=== PATIENT | female | born 1990 | race Caucasian/White ===

== ENCOUNTER 2017-05-09 13:02 | Emergency (ER) | payer BC, OTHER ==
--- NOTE | 2017-05-09 13:54 | EDM.PDOC ---
ED HPI GENERAL MEDICAL PROBLEM - General Chief Complaint: Headache Stated Complaint: MIGRAINE Time Seen by Provider: 05/09/17 13:29 Source of Information: Reports: Patient History Limitations: Reports: No Limitations - History of Present Illness INITIAL COMMENTS - FREE TEXT/NARRATIVE: Patient is a 27-year-old female who presents today complaining of a tension- like headache that started approximately 2:00 this morning. States she has a history of migraines and at one time placed on Imitrex but was discontinued due to sensation she was going to pass out. She took Excedrin, ibuprofen, and peppermint oil with no relief. Headache is moderate to severe in nature following similar symptomology from previous headaches. This is not described as a worse headache of her life. She has been seen in the ED in the past and received Benadryl IM which relieved the headache. Otherwise she denies any recent head trauma, change in medications, alcohol/recreational drug use, or any additional precipitating factors. She is mildly nauseated with known emesis. She denies any dizziness, no sitting, weakness, fever/chills, and/or stiff neck. 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 - Physical Exam Exam: See Below Exam Limited By: No Limitations General Appearance: Alert, WD/WN, Moderate Distress (Eyes are sensitive to the light.) Eye Exam: Bilateral Eye: EOMI, Nystagmus (None found), PERRL Ears: Normal External Exam, Hearing Grossly Normal, Normal TMs Nose: Normal Inspection, Normal Mucosa, No Blood Throat/Mouth: Normal Inspection, Normal Oropharynx, Normal Voice, No Airway Compromise Head Exam: Atraumatic, Normocephalic Neck: Normal Inspection, Supple, Non-Tender, Full Range of Motion Respiratory/Chest: No Respiratory Distress, Lungs Clear, Normal Breath Sounds, No Accessory Muscle Use, Chest Non-Tender Cardiovascular: Normal Peripheral Pulses, Regular Rate, Rhythm, No Murmur Neuro Exam (Abbreviated): Alert, Oriented, CN II-XII Intact, Normal Cognition, No Motor/Sensory Deficits, Other (Cerebellar function intact: Finger-nose, rapid alternating movements, standing on her toes) Back Exam: Normal Inspection, Full Range of Motion Extremities: Normal Inspection, No Pedal Edema Psychiatric: Normal Affect, Normal Mood Skin Exam: Warm, Dry, Intact, Normal Color Course - Vital Signs Last Recorded V/S: Last Vital Signs Temp 98.5 F 05/09/17 13:10 Pulse 65 05/09/17 15:50 Resp 18 05/09/17 13:10 BP 130/70 05/09/17 15:50 Pulse Ox 99 05/09/17 15:50 - Orders/Labs/Meds Labs: Laboratory Tests 05/09/17 Range/Units 14:15 Urine HCG, Qual Negative (NEGATIVE) Meds: Medications Discontinued Medications Generic Name Dose Route Start Last Admin Trade Name Hankq PRN Reason Stop Dose Admin Diphenhydramine HCl 50 mg 05/09/17 13:59 05/09/17 14:21 Benadryl IM 05/09/17 14:00 50 mg ONETIME ONE Administration Haloperidol Lactate 5 mg 05/09/17 13:59 05/09/17 14:20 Haldol IM 05/09/17 14:00 5 mg ONETIME ONE Administration Ketorolac Tromethamine 60 mg 05/09/17 13:59 05/09/17 14:20 Toradol IM 05/09/17 14:00 60 mg ONETIME ONE Administration Ondansetron HCl 4 mg 05/09/17 13:59 05/09/17 14:17 Zofran Odt PO 05/09/17 14:00 4 mg ONETIME ONE Administration - Re-Assessments/Exams Free Text/Narrative Re-Assessment/Exam: Patient states last menstrual cycle was one month ago. Patient did have a unprotected sex approximately 3 weeks ago and is currently not on any control. There is concerned that she may be . Ordered a test. In addition ordered Benadryl 50 mg IM, Zofran 4 mg ODT, Toradol 60 mg IM, and Haldol 5 mg IM. Will hold off on the Haldol and Toradol until test comes back. Urine hCG was negative. 05/09/17 15:22 Reassessment, patient states headache is gradually improving. At this point we'll discharge the patient home with instructions as documented. 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 Treatment is anti- inflammatories, rest, and push the fluids. Suggest going home after receiving sedative medications while in the ED to rest in a room that is dark with no distractions. Please follow up with a primary care provider at [facility] for reevaluation this week or the following week. Return to ED for any new or worsening symptoms. No driving today.
[2017-05-09] MEDS ORDERED: Haloperidol Lactate 5 MG/ML SDV IM ONE (13:59)
[2017-05-09] MEDS ORDERED: Ondansetron 4 MG Tab.DIS PO ONE (13:59)
[2017-05-09] MEDS ORDERED: Ketorolac 60 MG/2 ML SDV IM ONE (13:59)
[2017-05-09] MEDS ORDERED: diphenhydrAMINE 50 MG/ML SDV IM ONE (13:59)
[2017-05-09 15:52] VITALS: BP 130/70
== END 2017-05-09 15:52 | disposition home or self-care (01) ==
LOC: JD.ED 13:02
DX: G44.209 Tension-type headache, unspecified, not intractable (principal); Z88.5 Allergy status to narcotic agent; Z91.040 Latex allergy status; Z88.8 Allergy status to other drugs, medicaments and biological substances
CPT/HCPCS: 81025; 96372; 99284; A9270; J1200; J1630; J1885; 99283

== ENCOUNTER 2018-11-14 09:59 | Emergency (ER) | payer SELFPAY ==
[2018-11-14 10:32] VITALS: BP 120/91
[2018-11-14] MEDS ORDERED: Ondansetron 4 MG Tab.DIS PO PRN (10:45)
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
--- NOTE | 2018-11-14 12:05 | CT ---
CT cervical spine Technique: Multiple axial sections were obtained from above C1 inferiorly to the top of T2. Reconstructed sagittal and coronal images were reviewed. Comparison: No previous study. Findings: Vertebral body heights and disc spaces are maintained. No bony central or bony neural foraminal stenosis is seen. No fracture is identified. No abnormal subluxation is seen. Slightly asymmetric articulation of C1 to the occipital condyles is noted which is a normal variant. Impression: 1. Incidental finding. Nothing acute is seen on CT study of the cervical spine. Diagnostic code #2
--- NOTE | 2018-11-14 12:05 | CT ---
CT thoracic spine Technique: Multiple axial sections through the thoracic spine were obtained. Reconstructed sagittal and coronal images were reviewed. Findings: Mild disc space narrowing is seen within the lower thoracic spine with slight anterior osteophytes. Mild Schmorl's node deformities are seen within the lower thoracic spine. No fracture is seen. No central canal stenosis or neural foraminal stenosis is seen. Slight posterior disc bulge is noted at T10-T11. Impression: 1. Mild degenerative change and incidental Schmorl's node deformities. 2. Nothing acute is appreciated on CT study of the thoracic spine. Diagnostic code #2
--- NOTE | 2018-11-14 12:05 | CT ---
Head CT Technique: Multiple axial sections through the brain were obtained. Intravenous contrast was not utilized. Comparison: Previous MRI brain dated 10/21/11 is available. Findings: Ventricles along with basal cisterns and sulci over the convexities are within normal limits for the patient's age. No abnormal parenchymal densities are seen. No evidence of intracranial hemorrhage. No midline shift or mass effect is seen. Bone window settings were reviewed which show no acute calvarial abnormality. Visualized sinuses are clear. Impression: 1. Nothing acute is appreciated on noncontrast head CT study. Diagnostic code #1
--- NOTE | 2018-11-14 12:26 | CR ---
Chest: Portable view of the chest was obtained. Comparison: No prior chest x-ray is available. Heart size and mediastinum are normal. Lungs are clear. Bony structures are unremarkable. Impression: 1. Nothing acute is seen on portable chest x-ray. Diagnostic code #1
--- NOTE | 2018-11-14 12:50 | CT ---
CT facial bones Technique: Multiple axial sections through the facial bones were obtained. Reconstructed coronal and sagittal images were reviewed. Findings: Right and left globes are symmetric. Slight mucosal thickening is seen within both maxillary sinuses. Probable superimposed small retention cyst within the left maxillary sinus measuring about 1.0 cm. Other sinuses are clear. No facial bone fracture is seen. Impression: 1. Minimal sinus findings likely incidental. 2. Nothing acute is seen on CT study of the facial bones. Diagnostic code #2
== END 2018-11-14 12:08 | disposition home or self-care (01) ==
LOC: JD.ED 09:59
DX: S13.9XXA Sprain of joints and ligaments of unspecified parts of neck, initial encounter (principal); S29.011A Strain of muscle and tendon of front wall of thorax, initial encounter; S00.432A Contusion of left ear, initial encounter; S00.03XA Contusion of scalp, initial encounter; S20.219A Contusion of unspecified front wall of thorax, initial encounter; R07.9 Chest pain, unspecified; Z88.5 Allergy status to narcotic agent; Z91.040 Latex allergy status; V43.53XA Car driver injured in collision with pick-up truck in traffic accident, initial encounter
CPT/HCPCS: 70450; 70486; 71045; 72125; 72128; 81003; 99284; A9270

== ENCOUNTER 2019-02-02 09:46 | Emergency (ER) | payer SELFPAY ==
[2019-02-02 10:05] VITALS: BP 115/71
--- NOTE | 2019-02-02 10:43 | EDM.PDOC ---
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 Her period then ended on 02/05/2019, which is unusual for her, because her menstrual periods usually last 7 to 8 days, and are usually heavy until the [id number] day. The patient then developed right pelvic pressure yesterday morning. No recent fever, constipation, diarrhea, or urinary symptoms. No prior similar pelvic pressure, despite the patient having history of polycystic ovarian disease. The patient states that she took Advil around 07:00 this morning. The patient is Ab3. The patient does not have a PCP or Edi Programmer Analyst. 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 Left tib/fib.) Neurological History: Reports: Migraines (untreated) - Past Surgical History HEENT Surgical History: Reports: Oral Surgery (wisdom teeth extraction) Female Surgical History: Reports: D&C (x 3) Social & Family History - Family History Family Medical History: Noncontributory - Tobacco Use Smoking Status *Q: Never Smoker Tobacco Use Within Last Twelve Months: Smokeless Tobacco (Chesw 2 to 3 cans/day) - Caffeine Use Caffeine Use: Reports: Soda - Alcohol Use Alcohol Use History: Yes Alcohol Use Frequency: Daily - Recreational Drug Use Recreational Drug Use: Yes Drug Use in Last 12 Months: No Recreational Drug Type: Reports: Marijuana/Hashish (last smoked when 18 years old) - Living Situation & Occupation Living situation: Reports: Single, Other (with a roomate and her ) Occupation: Employed ([employer]) ED ROS GENERAL - Review of Systems Review Of Systems: ROS reveals no pertinent complaints other than HPI. ED EXAM, RENAL/ - Physical Exam Exam: See Below Exam Limited By: No Limitations General Appearance: Alert, WD/WN, No Apparent Distress Eye Exam: Bilateral Eye: EOMI, Normal Inspection Ears: Normal External Exam, Hearing Grossly Normal Nose: Normal Inspection Throat/Mouth: Normal Inspection, Normal Lips, Normal Voice, No Airway Compromise Head: Atraumatic, Normocephalic, Other (hirsut) Neck: Normal Inspection, Full Range of Motion Respiratory/Chest: No Respiratory Distress, Lungs Clear, Normal Breath Sounds, No Accessory Muscle Use Cardiovascular: Normal Peripheral Pulses, Regular Rate, Rhythm, No Edema, No Gallop, No JVD, No Murmur, No Rub GI/Abdominal: Normal Bowel Sounds, Soft, No Organomegaly, No Distention, No Abnormal Bruit, No Mass, Tender (mild, right pelvis only) (Female) Exam: Deferred Rectal (Female) Exam: Deferred Back Exam: Normal Inspection, Full Range of Motion, NT Extremities: Normal Inspection, Normal Range of Motion, No Pedal Edema, Normal Capillary Refill Neurological: Alert, Oriented, Normal Cognition, No Motor/Sensory Deficits Psychiatric: Normal Affect Skin Exam: Warm, Dry, Intact, Normal Color, No Rash Course - Vital Signs Last Recorded V/S: Last Vital Signs Temp 36.5 C 02/02/19 10:01 Pulse 70 02/02/19 10:01 Resp 16 02/02/19 10:01 BP 115/71 02/02/19 10:01 Pulse Ox 98 02/02/19 10:01 - Orders/Labs/Meds Labs: Laboratory Tests 02/02/19 02/02/19 Range/Units 11:05 11:05 Urine Color Yellow (Yellow) Urine Appearance Clear (Clear) Urine pH 8.5 H (5.0-8.0) Ur Specific [place] 1.020 (1.005-1.030) Urine Protein Trace H (Negative) Urine Glucose (UA) Negative (Negative) Urine Ketones Negative (Negative) Urine Occult Blood 1+ H (Negative) Urine Nitrite Negative (Negative) Urine Bilirubin Negative (Negative) Urine Urobilinogen 0.2 (0.2-1.0) Ur Leukocyte Esterase Negative (Negative) Urine RBC 0-5 (0-5) /hpf Urine WBC Not seen (0-5) /hpf Ur Squamous Epith Cells 5-10 H (0-5) /hpf Urine Bacteria Not seen (FEW) /hpf Urine Mucus Few (FEW) /hpf Urine HCG, Qual Negative (NEGATIVE) - Re-Assessments/Exams Free Text/Narrative Re-Assessment/Exam: 02/02/19 10:41 The cause of the patient's right pelvic pressure is unclear. I think it is reasonable to check an ultrasound of the pelvis, not only to evaluate her right ovary, but her uterus, as well. In the meantime, I have ordered a urinalysis to rule out a UTI, and a urine test. 02/02/19 12:58 Transvaginal pelvic ultrasound is read by Dr. Craft as: 1. Incidental findings as noted above. The patient's urinalysis is unremarkable, and her urine test is negative. Based on her history, physical exam, and ER tests, it appears that the patient simply had an unusual menstrual period. Departure - Departure Time of Disposition: 13:08 Disposition: Home, Self-Care 01 Condition: Good Clinical Impression: Abnormal menstrual periods - Discharge Information *PRESCRIPTION DRUG MONITORING PROGRAM REVIEWED*: Not Applicable *COPY OF PRESCRIPTION DRUG MONITORING REPORT IN PATIENT [place]IV[place]: Not Applicable Instructions: Dysfunctional Uterine Bleeding Referrals: Alan Raman MD [Physician] - Forms: ED Department Discharge Additional Instructions: You were seen in the emergency room after experiencing an unusually short and discolored menstrual period, along with nausea, vomiting, and right pelvic pressure. Workup in the ER included a urinalysis, a urine test, and a pelvic ultrasound. Your entire workup was unremarkable. You do not have a urinary tract infection. You are not . Your ultrasound did not find any abnormalities. Based on your history, physical exam, and ER tests, the cause of your symptoms appears to be due to an unusual menstrual period. Follow-up with the Edi Programmer Analyst Dr. Alan Raman, as needed. If any other problems, please do not hesitate to return to the ER.
--- NOTE | 2019-02-02 12:56 | US ---
Pelvic ultrasound: Multiple real-time images were obtained transvaginally. Comparison: No prior pelvic imaging. Uterus is retroverted. Endometrial thickness is 5 mm. Minimal fluid is noted within the endometrial cavity believed to be incidental. No myometrial abnormality is seen. Follicles are seen within the ovaries. No larger cyst or solid abnormality is seen. Minimal free fluid is seen believed to be incidental. Measurements: Uterus: Length 6.1 cm, AP height 3.2 cm,transverse width 4.9 cm Right ovary: 3.5 x 1.9 x 1.6 cm Left ovary: 2.9 x 1.4 x 2.0 cm Impression: 1. Incidental findings as noted above. Diagnostic code #2
== END 2019-02-02 13:20 | disposition home or self-care (01) ==
LOC: JD.ED 09:46
DX: N92.6 Irregular menstruation, unspecified (principal); E78.00 Pure hypercholesterolemia, unspecified; F17.290 Nicotine dependence, other tobacco product, uncomplicated; Z88.5 Allergy status to narcotic agent; Z91.040 Latex allergy status
CPT/HCPCS: 76857; 76857-26; 81001; 81025; 99282; 99284-25